=== PATIENT | female | born 1950 | race Caucasian/White ===

== ENCOUNTER 2022-06-10 11:13 | Outpatient (CLI) | payer MEDICARE, OTHER, SELFPAY ==
--- NOTE | 2022-06-10 11:20 | MM_ITS ---
WS: [id number] VIEWS: MLO and CC views both breasts. 3D digital tomosynthesis is also included in this exam. Comparison made with prior exam of 06/13/2010, 06/20/2011, 02/04/2013, 06/09/2014, 06/21/2014, 018, Findings: There was no sign of mass, architectural distortion or suspicious calcification in either breast. Ex tremely dense breast parenchyma MM/[place] [id number] Impression: BI-RADS: 2-Benign FOLLOW-UP: 1 Year Follow-up This mammogram was also analyzed by the Computer Aided Detection System R2 Imag e Core Measures Abstractor.
== END 2022-06-10 11:14 | disposition home or self-care (01) ==
LOC: RAD 11:14
PROVIDERS: PCP Family Medicine; Visit Provider Family Medicine
DX: Z12.31 Encounter for screening mammogram for malignant neoplasm of breast (principal)
CPT/HCPCS: 77063; 77067

== ENCOUNTER 2022-09-16 13:10 | Outpatient (CLI) | payer MEDICARE, OTHER, SELFPAY ==
--- NOTE | 2022-09-16 13:22 | XR_ITS ---
WS: [id number] DEXA (DUAL ENERGY X-RAY ABSORPTIOMETRY) Bone mineral density was performed using a Munchkin machine. HISTORY: ASYMPTOMATIC MENOPAUSAL STATE COMPARISON: None available. Left forearm BMD: 0.702 g/cm2. T score: -2.0 Z score: 0.0 Total hip BMD: Left: 0.580 g/cm2. T score: -3.4 Z score: -1.2 Right: 0.584 g/cm2. T score: -3.4 Z score: -1.2 10 year probability of a major osteoporotic fracture is 22.2%. XR/XR DEXA axial skeleton* 51891 IMPRESSION: OSTEOPOROSIS based upon the WHO classification for females.
== END 2022-09-16 13:11 | disposition home or self-care (01) ==
PROVIDERS: PCP Family Medicine; Visit Provider Family Medicine
DX: Z78.0 Asymptomatic menopausal state (principal); M81.0 Age-related osteoporosis without current pathological fracture
CPT/HCPCS: 77080

== ENCOUNTER 2022-09-30 09:05 | Oncology outpatient (recurring) (ONCR) | payer MEDICARE, OTHER, SELFPAY ==
[2022-09-30 09:42] VITALS: BMI 14.2
[2022-09-30 09:47] VITALS: BP 110/52; PULSE 70; RESP 16; TEMP 37.1; O2SAT 99
[2022-09-30] MEDS: denosumab 60 mg SDV SUBCUT (09:59)
== END 2022-10-19 23:59 | disposition home or self-care (01) ==
PROVIDERS: PCP Family Medicine; Visit Provider Family Medicine
DX: M81.0 Age-related osteoporosis without current pathological fracture (principal)
CPT/HCPCS: 96372; J0897

== ENCOUNTER 2023-07-24 13:16 | Observation (INO) | payer MEDICARE, OTHER, SELFPAY ==
[2023-07-24] VITALS (9 sets, daily range): BP systolic 90–117; BP diastolic 38–57; PULSE 61–80; RESP 16–17; TEMP 36.4–36.5; O2SAT 95–98; BMI 13.1
--- NOTE | 2023-07-24 13:18 | XR_ITS ---
WS: [id number] Portable AP upright chest, 07/24/2023 Clinical Data: chest pain Comparison: Two-view chest, 02/14/2019 Findings: No nodules, masses or effusions are seen. The heart is normal. The pulmonary vascularity is not increased. No pneumonia or pneumothorax is seen. The diaphragms are flattened. Monitor leads are on the chest and abdominal wall. Impression: Hyperinflation.
--- NOTE | 2023-07-24 13:43 | PC.PHAR ---
Addendum entered by Marycarmen Castillo 07/24/23 13:48: pts famliy states pt not taking any otc medications Original Note: pts famly verified pts medications-states the pt is still taking lipitor 20mg daily samina at [facility] pharmacy states last filled 02/07/23 90d/s pts family states the pt is still taking lipitor 20mg daily-
--- NOTE | 2023-07-24 13:44 | ECG_ITS ---
[facility] Test Date: 2023-07-24 Pat Name: Kelley Rahman Department: Room: Gender: Female Tax Manager: : 1950 Requested By: Monse Duarte Order Number: [id number] Rivero MD: Henok Durant M.D. Measurements Intervals Sherrill Rate: 68 P: 79 KS: 129 QRS: 268 QRSD: 103 T: 13 QT: 372 QTc: 397 Interpretive Statements SINUS RHYTHM RIGHT AXIS DEVIATION [QRS AXIS > 100] INCOMPLETE RIGHT BUNDLE BRANCH BLOCK [90+ ms QRS DURATION, TERMINAL R IN V1/V2, 40+ ms S IN I/aVL/V4/V5/V6] NONSPECIFIC ST & T-WAVE ABNORMALITY Compared to ECG 03/06/2017 16:06:53 T-wave abnormality now present Myocardial infarct finding no longer present Electronically Signed On 07-25-2023 23:14:14 CAMP GUARD by Henok Durant M.D. [id number]
[2023-07-24 13:53] LABS: Basophils % 0.2 %; Eosinophils # 0.1 10^3/uL (0.0-0.8); Eosinophils % 0.9 %; Hematocrit 46.4 % (36-47); Lymphocytes # 0.4 10^3/uL (0.8-4.8); Mean Corpuscular HGB Conc 32.1 g/dL (30-55); Mean Corpuscular Hemoglobin 29.1 pg (27-33); Mean Corpuscular Volume 90.6 fl (85-98); Mean Platelet Volume 9.9 fL (7.4-10.4); Monocytes # 0.3 10^3/uL (0.2-0.9); Monocytes % 3.1 %; Neutrophils # 8.15 10^3/uL (1.8-7.7); Neutrophils % 91.7 %; Nucleated Red Blood Cells % 0 %; Platelet Count 236 10^3/cmm (157-399); Red Blood Count 5.12 10^6/uL (3.85-5.65); Red Cell Distribution Width 14.1 % (12.1-15.1)
[2023-07-24 14:19] LABS: Troponin(5th) Baseline 26 ng/L (0-10)
[2023-07-24 14:36] LABS: INR 1.05 (0.8-1.2); Partial Thromboplastin Time 27.1 SECONDS (23.9-36.7)
--- NOTE | 2023-07-24 14:39 | W.ED.WEAKNES ---
HPI - Weakness General: Chief complaint: Weakness Stated complaint: chest pains Time Seen by Provider: 07/24/23 13:33 Source: patient Mode of arrival: ambulatory History of Present Illness: 73-year-old female who presents to the emergency room with complaints of weakness and shortness of breath. She has been sick for the last several days she had a syncopal episode 2 days ago. Intermittently she will feel racing heart rate. She denies any fever sweats or chills no abdominal pain or chest pain no dysuria urgency or frequency. No vomiting no diarrhea MD Complaint: generalized weakness Onset (ago): day(s) Duration: intermittent Relieving factors: none Exacerbating factors: none Associated symptoms: Denies chest pain, chills, confusion, melena, decreased appetite, diaphoresis, dysuria, easy bruising, fever(s), headache(s), myalgias, nausea, rash, short of breath, syncope or vomiting Review of Systems Const: Denies: fever(s), chills or diaphoresis Card: Denies: chest pain or syncope Resp: Denies: dyspnea GI: Denies: nausea, vomiting or melena : Denies: dysuria Musc: Denies: neck pain or back pain Skin/Breast: Denies: rash Neuro: Denies: headache(s) or confusion Nsa/Lymph: Denies: easy bruising Physical Exam Const: COMMON NORMALS: no acute distress GENERAL APPEARANCE: cooperative and comfortable ORIENTATION/CONSCIOUSNESS: Yes awake, Yes oriented to person, Yes oriented to place and Yes oriented to time HENMT: COMMON NORMALS: normocephalic, atraumatic and hearing grossly normal bilaterally HEAD & SCALP: normocephalic and atraumatic Resp: COMMON NORMALS: normal respiratory effort, No retractions, No use of accessory muscles and clear to auscultation bilaterally AUSCULTATION: clear to auscultation bilaterally Cardio: COMMON NORMALS: regular rate, regular rhythm and No murmurs present (Cardio) RATE: regular rate RHYTHM: regular rhythm GI: COMMON NORMALS: Soft to palpation and No hepatosplenomegaly present AUSCULTATION: Yes normoactive bowel sounds PALPATION: Yes Soft to palpation, No Tenderness to palpation present (GI), No Guarding due to palpation present (GI) and Yes No hepatosplenomegaly present Extremity: COMMON NORMALS: normal to inspection, capillary refill normal, no clubbing, cyanosis or edema, no calf tenderness and no pedal edema Neuro: SENSORIUM/ORIENTATION: Yes oriented to person, Yes oriented to place and Yes oriented to time Skin: COMMON NORMALS: no rashes or lesions noted GENERAL SKIN EXAM: no rashes or lesions noted Course Vital Signs: Vital signs: Vital Signs Temperature 97.6 F 07/24/23 13:23 Pulse Rate 79 07/24/23 16:10 Respiratory Rate 16 07/24/23 13:23 Blood Pressure 104/47 07/24/23 16:10 Pulse Oximetry 98 07/24/23 16:10 Oxygen Delivery Me thod Room Air 07/24/23 16:10 MDM - Weakness Medical Decision Making Patient clinically is anorexic has fixations on food intake could have been exacerbated with her dementia per the family's report. She is reporting her heart racing at times and had a syncopal episode yesterday. She had some significant fluctuations in her blood pressure with notable hypotension at times. This did improve slightly with fluids. Given her BMI and the syncopal episode we recommended observation for further evaluation for syncopal episodes and heart rhythm patient refuses will discharge home encouraged her to follow-up with her primary care doctor to complete outpatient syncopal workup Medical Records I reviewed the patient's medical records. Lab Data I reviewed the patient's lab results. 07/24/23 13:48 07/24/23 13:48 Laboratory Results WBC 8.90 10^3/uL (3.29-11.43) 07/24/23 13:48 RBC 5.12 10^6/uL (3.85-5.65) 07/24/23 13:48 Hgb 14.90 g/dL (11.27-16.99) 07/24/23 13:48 Hct 46.4 % (36-47) 07/24/23 13:48 MCV 90.6 fl (85-98) 07/24/23 13:48 MCH 29.1 pg (27-33) 07/24/23 13:48 MCHC 32.1 g/dL (30-55) 07/24/23 13:48 RDW 14.1 % (12.1-15.1) 07/24/23 13:48 Plt Count 236 10^3/cmm (157-399) 07/24/23 13:48 MPV 9.9 fL (7.4-10.4) 07/24/23 13:48 Neut % (Auto) 91.7 % 07/24/23 13:48 Lymph % (Auto) 4.0 % 07/24/23 13:48 [place] % (Auto) 3.1 % 07/24/23 13:48 Eos % (Auto) 0.9 % 07/24/23 13:48 Baso % (Auto) 0.2 % 07/24/23 13:48 Neut # (Auto) 8.15 10^3/uL (1.8-7.7) H 07/24/23 13:48 Lymph # (Auto) 0.4 10^3/uL (0.8-4.8) L 07/24/23 13:48 [place] # (Auto) 0.3 10^3/uL (0.2-0.9) 07/24/23 13:48 Eos # (Auto) 0.1 10^3/uL (0.0-0.8) 07/24/23 13:48 Baso # (Auto) 0.0 10^3/uL (0.0-0.1) 07/24/23 13:48 Nucleated RBC % (auto) 0 % 07/24/23 13:48 Nucleated RBCs # 0.0 /100WBC 07/24/23 13:48 PT 14.10 SECONDS (12.1-14.9) 07/24/23 14:15 INR 1.05 (0.8-1.2) 07/24/23 14:15 APTT 27.1 SECONDS (23.9-36.7) 07/24/23 14:15 Sodium 143 mmol/L (136-145) 07/24/23 13:48 Potassium 3.4 mmol/L (3.5-5.1) L 07/24/23 13:48 Chloride 103 mmol/L (98-107) 07/24/23 13:48 Carbon Dioxide 28 mmol/L (22-29) 07/24/23 13:48 Anion Gap 15.4 (5-19) 07/24/23 13:48 BUN 12 mg/dL (8-23) 07/24/23 13:48 Creatinine 1.0 mg/dL (0.5-0.9) H 07/24/23 13:48 GFR Calculation Not Reportable 07/24/23 13:48 Glucose 89 mg/dL (65-115) 07/24/23 13:48 Calculated Osmolality 295 mOsm/kg (285-295) 07/24/23 13:48 Lactic Acid 1.2 mmol/L (0.5-2.2) 07/24/23 13:48 Calcium 9.8 mg/dL (8.5-10.5) 07/24/23 13:48 Total Bilirubin 0.8 mg/dL (0.15-1.2) 07/24/23 13:48 AST 26 U/L (0-32) 07/24/23 13:48 ALT 9 U/L (0-33) 07/24/23 13:48 Alkaline Phosphatase 89 U/L (35-105) 07/24/23 13:48 Creatine Kinase 176 U/L (26-192) 07/24/23 13:48 Troponin T Baseline 26 ng/L (0-10) H 07/24/23 13:48 Troponin T 120 Minute 24.44 ng/L (0-10) H 07/24/23 15:43 Delta Troponin T -1.56 ABS# (0-10) L 07/24/23 15:43 NT-Pro-B Natriuret Pep 951 pg/mL (0-125) H 07/24/23 13:48 Total Protein 6.8 g/dL (6.6-8.7) 07/24/23 13:48 Albumin 3.8 g/dL (3.5-5.2) 07/24/23 13:48 Globulin 3.0 g/dL (1.3-4.6) 07/24/23 13:48 Lipase 21 U/L (13-60) 07/24/23 13:48 All radiology interpretation(s) finalized by discharge Discharge Plan Discharge Patient Disposition: Home Clinical Impression: Syncope Condition: Stable Prescriptions: No Action donepezil 5 mg tablet 5 mg PO BEDTIME citalopram 10 mg tablet 10 mg PO QAM potassium chloride 10 mEq tablet extended release 10 meq PO BID atorvastatin 20 mg tablet 20 mg PO QAM Discharge Orders: Discharge ED (Routine); Ordered 07/24/23 Ordered By: Mikel Cooper Referrals: Kim Shell MD [Primary Care Provider] - Discharge Diet: Usual diet Discharge Activity: Increase activity as tolerated Patient Instructions: Opioid Safety, Pain Management Activity Restrictions/Additional Instructions: Thank you for choosing [facility] for your healthcare needs today. Please realize this is an emergency room and that we are providing you with a medical screening exam and this may not be complete and all inclusive of all the testing and or work up that you may need to determine your ailment or severity of your illness. It is very important that you follow up as instructed or that you return to the Emergency Department should you have concerns or if your condition changes or worsens in any way. You were seen today after a syncopal episode yesterday. Your blood pressure varied and at times was quite low it did improve a little with fluids. We recommended that you be admitted to further evaluate your syncope. Since you declined we recommend that you follow-up with your primary care doctor as soon as you are able to complete the syncopal workup as an outpatient. Coding Level of Care Code ED Rental Sales Associate for [employer]ik[employer] Harry
[2023-07-24 14:41] LABS: Alanine Aminotransferase 9 U/L (0-33); Albumin Level 3.8 g/dL (3.5-5.2); Alkaline Phosphatase 89 U/L (35-105); Anion Gap 15.4 (5-19); Aspartate Amino Transferase 26 U/L (0-32); Blood Urea Nitrogen 12 mg/dL (8-23); Calcium 9.8 mg/dL (8.5-10.5); Carbon Dioxide 28 mmol/L (22-29); Chloride 103 mmol/L (98-107); Creatine Phosphokinase 176 U/L (26-192); Glucose 89 mg/dL (65-115); Lipase 21 U/L (13-60); NT Pro B Type Natriuretic Pept 951 pg/mL (0-125); Osmolality Calculated 295 mOsm/kg (285-295); Potassium 3.4 mmol/L (3.5-5.1); Sodium 143 mmol/L (136-145); Total Bilirubin 0.8 mg/dL (0.15-1.2); Total Protein 6.8 g/dL (6.6-8.7)
[2023-07-24] MEDS: sodium chloride 0.9% 1,000 ML 999 ML IV (16:02)
[2023-07-24 16:13] LABS: Troponin 5 2HR 24.44 ng/L (0-10)
[2023-07-24 16:17] LABS: Troponin 5 2HR Delta -1.56 ABS# (0-10)
[2023-07-24 17:13] LABS: Lactic Sepsis W/Reflex 1.2 mmol/L (0.5-2.2)
[2023-07-24 17:22] LABS: Influenza A by IFA negative (Negative); Influenza B by IFA negative (Negative)
[2023-07-24 18:47] LABS: Adenovirus Not Detected (NOT DETECT); Chlamydia Pneumoniae Not Detected (NOT DETECT); Coronavirus 229E,HKU1,NL63,OC4 Not Detected (NOT DETECT); Human Metapneumovirus Not Detected (NOT DETECT); Human Rhinovirus/Enterovirus Not Detected (NOT DETECT); Influenza A Not Detected (NOT DETECT); Influenza A H1 Not Detected (NOT DETECT); Influenza A H1-2009 Not Detected (NOT DETECT); Influenza A H3 Not Detected (NOT DETECT); Influenza B Not Detected (NOT DETECT); Mycoplasma Pneumoniae Not Detected (NOT DETECT); Parainfluenza Virus Type 1 Not Detected (NOT DETECT); Parainfluenza Virus Type 2 Not Detected (NOT DETECT); Parainfluenza Virus Type 3 Not Detected (NOT DETECT); Parainfluenza Virus Type 4 Not Detected (NOT DETECT); Respiratory Syncytial Virus A Not Detected (NOT DETECT); Respiratory Syncytial Virus B Not Detected (NOT DETECT); SARS-COV-2 Not Detected (NOT DETECT)
--- NOTE | 2023-07-24 20:20 | P.HP_ITS ---
Providers/Chief Complaint 2 Admitting Physician: Nils Guaman Primary Care Provider: Kim Shell MD Chief Complaint: chest pains History of Present Illness 73-year-old lady with history of dementia, long history of poor appetite, possible eating disorder, low oral intake, vomiting intermittently, low weight, has been following up with primary provider with regards to this, refusing to eat well, eating mostly junk food, has been tried also different protein shakes, but still without success. Other medical problems. On Thursday she had a syncopal episode while walking at home. She does not seem to remember this, and only states I am doing well, not sure why I am here. I would like you to let me go home tomorrow. From history obtained from family it seems that she was having her heart racing. She does tell me that she was having cold-like symptoms with stuffy nose, possibly some cough about a week ago. This seems to have resolved. Then today her has noticed that she again appeared like she was not feeling well, appearing weaker with some more trouble walking, also reported some heart racing today. He does not remember this. She states currently while at rest in bed she is doing very well denies any symptoms, pain, discomfort or problems. Review of Systems 2 Const: Reports: fatigue; Denies: fever(s), chills, body aches or malaise ENMT: Denies: throat pain Card: Reports: palpitations and syncope; Denies: chest pain, edema or dyspnea on exertion Resp: Denies: dyspnea, productive cough, change in phlegm color or hemoptysis GI: Denies: abdominal pain, nausea, vomiting, diarrhea, constipation, hematochezia or melena : Denies: flank pain, urinary frequency or hematuria Musc: Denies: back pain, joint swelling or joint redness Skin/Breast: Denies: rash or new lesions Neuro: Denies: headache(s), numbness in extremities, weakness in extremities, dizziness, confusion or seizure-like activity Medications/Allergies Home Medications Medication Instructions Recorded Confirmed Last Taken Type atorvastatin 20 mg tablet 20 mg PO QAM 07/24/23 07/24/23 Unknown History citalopram 10 mg tablet 10 mg PO QAM 07/24/23 07/24/23 Unknown History donepezil 5 mg tablet 5 mg PO BEDTIME 07/24/23 07/24/23 07/23/23 History potassium chloride 10 mEq 10 meq PO BID 07/24/23 07/24/23 Unknown History tablet,extended release Allergies Allergy/AdvReac Type Severity Reaction Status Date / Time iodine Allergy Unknown Unknown Verified 07/24/23 13:42 PFSH Acute 2 PFSH: Medical History Inadequate oral intake Dementia Vitals/I&O/Wt Last Vital Signs Temp 97.6 F 07/24/23 13:23 Pulse 73 07/24/23 18:00 Resp 16 07/24/23 13:23 BP 94/38 07/24/23 18:00 Pulse Ox 95 07/24/23 18:00 O2 Del Method Room Air 07/24/23 18:18 07/24/23 07/24/23 07/24/23 06:59 14:59 22:59 Intake Total 1000 / 1000 Balance 1000 / 1000 Weight last 48 hrs Weight 34.927 kg Weight 34.927 kg Physical Exam 2 Const: COMMON NORMALS: alert GENERAL APPEARANCE: cooperative NUTRITIONAL APPEARANCE: cachectic ORIENTATION/CONSCIOUSNESS: Yes awake and Yes Other orientation findings (Not a good historian.) HENMT: COMMON NORMALS: oropharynx normal Neck/C-Spine: COMMON NORMALS: no JVD Resp: COMMON NORMALS: normal respiratory effort and clear to auscultation bilaterally AUSCULTATION: clear to auscultation bilaterally OTHER: Minimal wheeze Cardio: COMMON NORMALS: no JVD, regular rhythm, S1 normal heart sound present, S2 normal heart sound present and No murmurs present (Cardio) RHYTHM: regular rhythm HEART SOUNDS: S1 normal heart sound present and S2 normal heart sound present GI: COMMON NORMALS: Normal to inspection, nondistended, normoactive bowel sounds present, Soft to palpation and non-tender PALPATION: Yes Soft to palpation Extremity: COMMON NORMALS: no joint enlargement and no pedal edema OTHER: Sarcopenia Neuro: COMMON NORMALS: patient oriented x3 and moves all extremities S ENSORIUM/ORIENTATION: Yes alert Skin: COMMON NORMALS: no rashes or lesions noted GENERAL SKIN EXAM: no rashes or lesions noted Data 07/24/23 13:48 07/24/23 13:48 A&P Assessment and plan (1) Syncope: Syncope on Thursday while standing/walking. Appears possibly orthostatic. Blood pressure soft 90/38. Received a bolus in ER. Will give LR infusion. Does have poor oral intake. Denies any diarrhea. Denies chest pain pressure shortness of breath. Did have a cold-like illness with some nasal congestion perhaps mild cough about a week ago. Reviewed vitals, CBC, INR, CMP, CK, lipase, NT proBNP, troponin, COVID PCR panel, influenza antigen, chest x-ray, EKG. Reviewed ER note, discussed with ER physician. Possible severe/life-threatening arrhythmia with palpitations and syncope. Complete troponin EKG series, assess for cardiac ischemia. Incomplete RBBB on my EKG interpretation. Monitor on telemetry for possible arrhythmia. Discussed with her family possible environmental monitoring specialist at discharge. Obtain echocardiogram. Assess for possible severe valvular heart disease. Additionally obtain UA. TSH. Obtain orthostatics. Dietitian consultation if available. Add protein shakes to meals. IV hydration overnight. She is very small. At risk of fluid overload. Monitor. Encourage oral intake. Follow-up with primary provider regarding possible eating disorder, assessment for other possible causes of longstanding poor appetite, chronic weight loss. Consider assessment with gastric emptying study. Consider CT angiogram abdomen pelvis for assessment for chronic mesenteric ischemia. Consider psychiatric assessment for possible eating disorder. Discussed with patient and family also donepezil can cause syncope. Hold/stop medicine at this time. (2) Palpitations: Telemetry monitoring. Consider environmental monitoring specialist at discharge. (3) Inadequate oral intake: Severe malnutrition, BMI 13.2. Sarcopenia. Poor oral intake. Intermittent vomiting. Dietitian consultation if available. Add protein shakes to meals. IV hydration overnight. Encourage oral intake. Follow-up with primary provider regarding possible eating disorder, assessment for other possible causes of longstanding poor appetite, chronic weight loss. Consider assessment with gastric emptying study. Consider CT angiogram abdomen pelvis for assessment for chronic mesenteric ischemia. Consider psychiatric assessment for possible eating disorder. is not sure if she may be inducing vomiting sometimes. (4) Dementia: Stop donepezil for now given syncopal episode. Plan With care discussion: Wants attempted cardiopulmonary resuscitation in case of cardiac arrest. Attestations 2 Medical Necessity Statement*: Place in observation for additional assessment management of syncopal episode, palpitations and lady with history of dementia, malnutrition. Diagnoses Syncope R55 Palpitations R00.2 Inadequate oral intake R63.8 Dementia F03.90
[2023-07-24] MEDS: potassium chloride ER 10 mEq Tablet PO (21:04)
[2023-07-24] MEDS: lactated ringers 1,000 ML 75 ML IV (21:04)
--- NOTE | 2023-07-24 21:33 | PC.NURSE ---
patient is alert and oriented x4, but needs constant redirection as she in forgetful.
[2023-07-24 21:44] LABS: Add Urine Microscopic? YES; Bilirubin Urine 1+ (Negative); Blood Urine Neg (Negative); Glucose Urine UA Norm (Normal); Ketones Urine 2+ (Negative); Leukocyte Esterase Urine Negative (Negative); Nitrate Urine Negative (Negative); Protein Urine Trace (Negative); Urine Appearance Hazy (CLEAR); Urine Color Amber (Yellow); Urobilinogen Urine Norm (Negative); pH Urine 6 (5-7)
[2023-07-24 21:45] LABS: Bacteria Urine TRACE /hpf; Coarse Granular Casts Urine 0-4 /lpf; Hyaline Casts Urine 0-4 /lpf; Mucus Urine 3+ /hpf; RBC Urine 0-4 /hpf (0-2); Squamous Epithelial Cell Urine 0-4 /hpf (0-5); WBC Urine 0-4 /hpf (0-5)
[2023-07-24 22:50] LABS: Magnesium 1.9 mg/dL (1.7-2.3); Thyroid Stimulating Hormone 1.74 uIU/mL (0.27-4.20)
[2023-07-25] VITALS: BP 107/51; PULSE 61; RESP 17; TEMP 36.7; O2SAT 98
[2023-07-25 00:08] VITALS: BP 107/51; BP 118/67; PULSE 61; PULSE 62
[2023-07-25 04:00] VITALS: BP 114/52; PULSE 58; RESP 18; TEMP 36.4; O2SAT 97
[2023-07-25 06:00] VITALS: PULSE 56
[2023-07-25] MEDS: atorvastatin 40 mg Tablet PO (06:16)
[2023-07-25] MEDS: citalopram 20 mg Tablet 10 MG PO (06:16)
[2023-07-25 07:54] VITALS: BP 111/47; PULSE 56; RESP 20; TEMP 36.6; O2SAT 98
[2023-07-25] MEDS: potassium chloride ER 10 mEq Tablet PO (08:52)
--- NOTE | 2023-07-25 09:26 | USCV_ITS ---
Kelley Rahman Age: 73 Gender: F : 1950 Exam Date: 07/25/2023 11:32 Ordering Phys: Nils Guaman MD Technologist: Gus Hensley [place] [facility] [place]: [place] pain BP: 111 / 47 HR: 65 Rhythm: Sinus Technical Quality: Adequate MEASUREMENTS (Male / Female) Normal Values 2D ECHO LVOT Diameter 2.0 cm LV Ejection Fraction MOD 2C 68.2 % LV Ejection Fraction 2C AL 68.2 % LA Diameter 3.0 cm LA Width 3.2 cm LA Height 1.7 cm RA Width 3.1 cm RA Height 3.5 cm Aorta at Sinotubular Diameter 2.1 cm IVC Diameter 1.6 cm M-MODE Aortic Annulus Diameter 3.0 cm LA Ao Ratio MM 1.0 MV E Point Septal Separation 0.6 cm DOPPLER AV Peak Velocity 135.0 cm/s LVOT Peak Velocity 76.0 cm/s AV Area Cont Eq vti 1.2 cm squared AV Area Cont Eq pk 1.8 cm squared MV Peak Velocity 111.0 cm/s MV Area PHT 3.3 cm squared Mitral E to A Ratio 0.8 MV E' Velocity 31.5 cm/s Mitral E to MV E' Ratio 6.5 Mitral E to LV E' Lateral Ratio 8.1 Mitral E to LV E' Septal Ratio 5.5 TR Peak Velocity 254.5 cm/s TR Peak Gradient 25.9 mmHg TR Mean Velocity 189.1 cm/s TR Mean Gradient 15.6 mmHg TR Velocity Time Integral 63.6 cm Right Atrial Pressure 8.0 mmHg Pulmonary Artery Systolic Pressu 33.9 mmHg PV Peak Velocity 70.0 cm/s RV Acceleration Time 0.1 s RV Ejection Time 0.3 s RV AcT/ET 0.5 FINDINGS Left Ventricle Left ventricle is normal size. LV systolic function is normal with EF of 60 to 65%. No regional wall motion abnormalities are seen. Grade 1 diastolic dysfunction. Right Ventricle Normal in size and function Right Atrium Normal in size Left Atrium Normal in size Mitral Valve Structurally normal mitral valve. Trace mitral regurgitation. Aortic Valve Structurally normal aortic valve. No significant stenosis. Moderate aortic regurgitation. Tricuspid Valve Mild tricuspid regurgitation. Pulmonary artery systolic pressure is normal. Pulmonic Valve Not well visualized. Mild pulmonic regurgitation. Pericardium Normal Aorta Normal IVC Apperas to be normal CONCLUSIONS LV systolic function is normal with EF of 60 to 65% Grade 1 diastolic dysfunction. Trace mitral regurgitation Moderate aortic regurgitation Mild tricuspid regurgitation Mild pulmonic regurgitation No comparison studies are available Henok Durant MD (Electronically Signed) Final Date: 26 July 2023 10:56 S
[2023-07-25] MEDS: haloperidol inj 5 mg/mL INJ 1 mL 1 MG IM (10:41)
[2023-07-25] MEDS: lactated ringers 1,000 ML 75 ML IV (10:47)
[2023-07-25 11:58] VITALS: BP 100/48; BP 103/50; BP 92/41; PULSE 60; PULSE 70; PULSE 96; RESP 19; TEMP 36.6; O2SAT 92
--- NOTE | 2023-07-25 15:15 | PM.DCS ---
Discharge Providers Date of Admission: 07/24/23 17:51 Date of Discharge: July 25, 2023 Attending Provider at Admission: Nils Guaman Attending Provider at Discharge: Nils Guaman Primary Care Provider: Kim Shell MD Diagnoses at Discharge Discharge Diagnosis (1) Syncope: Status: Acute (2) Palpitations: Status: Acute (3) Inadequate oral intake: Status: Acute (4) Dementia: Status: Acute Reason for Visit Reason for Visit: chest pains Brief History: 73-year-old lady with history of dementia, long history of poor appetite, possible eating disorder, low oral intake, vomiting intermittently, low weight, has been following up with primary provider with regards to this, refusing to eat well, eating mostly junk food, has been tried also different protein shakes, but still without success. Other medical problems. On Thursday she had a syncopal episode while walking at home. She does not seem to remember this, and only states I am doing well, not sure why I am here. I would like you to let me go home tomorrow. From history obtained from family it seems that she was having her heart racing. She does tell me that she was having cold-like symptoms with stuffy nose, possibly some cough about a week ago. This seems to have resolved. Then today her has noticed that she again appeared like she was not feeling well, appearing weaker with some more trouble walking, also reported some heart racing today. He does not remember this. She states currently while at rest in bed she is doing very well denies any symptoms, pain, discomfort or problems. Hospital Course Hospital Course She received IV fluid hydration. Donepezil was held. Additionally assessed by UA, TSH which were unremarkable. Blood pressures with improvement. Orthostatics obtained this morning, lying 100/48, standing 92/41. Monitor neurotelemetry, noted some sinus bradycardia. Recommended discontinuation of donepezil given reported risks of increased vagal tone, bradycardia, as well as syncope with donepezil. Encouraged oral intake, she has not been having good oral intake, appetite is is is not good, per mostly eats some junk food in small amounts. Intermittent vomiting. Severe malnutrition, sarcopenia, emaciated, BMI 13.3. These are chronic issues which have been going on for very long time. Please assess further reasons for poor oral intake and malnutrition. She was seen by dietitian with given recommendations. We discussed also with them as she is on citalopram, stopping citalopram and switching to mirtazapine which is done. Please consider additional assessment for possible mesenteric stenosis/chronic bowel ischemia with CT angiogram abdomen pelvis, consider assessment with gastric emptying study for any possible gastroparesis. Consider further assessment for eating disorder. She is given referral to [facility]. During hospitalization did become inconsolable and agitated, required a dose of Haldol 1 mg IM with a very good response. Behavioral health care may help reassess with history of dementia with behavioral disturbance as well as possible eating disorder. Echocardiogram was obtained as well, final result not yet available but preliminarily does appear to have moderate aortic regurgitation. Discussed with her and family, please follow-up. At discharge per discussion with cardiology set up with cardiac event monitor. Physical Exam Const: COMMON NORMALS: patient oriented x3 and alert GENERAL APPEARANCE: cooperative NUTRITIONAL APPEARANCE: cachectic ORIENTATION/CONSCIOUSNESS: Yes awake and Yes Other orientation findings (Not a good historian.) HENMT: COMMON NORMALS: oropharynx normal Neck/C-Spine: COMMON NORMALS: no JVD Resp: COMMON NORMALS: normal respiratory effort and clear to auscultation bilaterally AUSCULTATION: clear to auscultation bilaterally OTHER: Minimal wheeze Cardio: COMMON NORMALS: no JVD, regular rhythm, S1 normal heart sound present, S2 normal heart sound present and No murmurs present (Cardio) RHYTHM: regular rhythm HEART SOUNDS: S1 normal heart sound present and S2 normal heart sound present GI: COMMON NORMALS: Normal to inspection, nondistended, normoactive bowel sounds present, Soft to palpation and non-tender PALPATION: Yes Soft to palpation Extremity: COMMON NORMALS: no joint enlargement and no pedal edema OTHER: Sarcopenia Neuro: COMMON NORMALS: patient oriented x3 and moves all extremities SENSORIUM/ORIENTATION: Yes alert Skin: COMMON NORMALS: no rashes or lesions noted GENERAL SKIN EXAM: no rashes or lesions noted Discharge Data Studies Completed and Pending Completed Studies During Hospitalization Category Date Time Status XR chest 1V portable [id number] Stat Exams 07/24/23 13:18 Completed Pending at discharge Category Date Time Status CV. echo complete* [id number] Routine Ultrasound 07/25/23 09:26 Taken Laboratory Results WBC 8.90 10^3/uL (3.29-11.43) 07/24/23 13:48 RBC 5.12 10^6/uL (3.85-5.65) 07/24/23 13:48 Hgb 14.90 g/dL (11.27-16.99) 07/24/23 13:48 Hct 46.4 % (36-47) 07/24/23 13:48 MCV 90.6 fl (85-98) 07/24/23 13:48 MCH 29.1 pg (27-33) 07/24/23 13:48 MCHC 32.1 g/dL (30-55) 07/24/23 13:48 RDW 14.1 % (12.1-15.1) 07/24/23 13:48 Plt Count 236 10^3/cmm (157-399) 07/24/23 13:48 MPV 9.9 fL (7.4-10.4) 07/24/23 13:48 Neut % (Auto) 91.7 % 07/24/23 13:48 Lymph % (Auto) 4.0 % 07/24/23 13:48 [place] % (Auto) 3.1 % 07/24/23 13:48 Eos % (Auto) 0.9 % 07/24/23 13:48 Baso % (Auto) 0.2 % 07/24/23 13:48 Neut # (Auto) 8.15 10^3/uL (1.8-7.7) H 07/24/23 13:48 Lymph # (Auto) 0.4 10^3/uL (0.8-4.8) L 07/24/23 13:48 [place] # (Auto) 0.3 10^3/uL (0.2-0.9) 07/24/23 13:48 Eos # (Auto) 0.1 10^3/uL (0.0-0.8) 07/24/23 13:48 Baso # (Auto) 0.0 10^3/uL (0.0-0.1) 07/24/23 13:48 Nucleated RBC % (auto) 0 % 07/24/23 13:48 Nucleated RBCs # 0.0 /100WBC 07/24/23 13:48 PT 14.10 SECONDS (12.1-14.9) 07/24/23 14:15 INR 1.05 (0.8-1.2) 07/24/23 14:15 APTT 27.1 SECONDS (23.9-36.7) 07/24/23 14:15 Sodium 143 mmol/L (136-145) 07/24/23 13:48 Potassium 3.4 mmol/L (3.5-5.1) L 07/24/23 13:48 Chloride 103 mmol/L (98-107) 07/24/23 13:48 Carbon Dioxide 28 mmol/L (22-29) 07/24/23 13:48 Anion Gap 15.4 (5-19) 07/24/23 13:48 BUN 12 mg/dL (8-23) 07/24/23 13:48 Creatinine 1.0 mg/dL (0.5-0.9) H 07/24/23 13:48 GFR Calculation Not Reportable 07/24/23 13:48 Glucose 89 mg/dL (65-115) 07/24/23 13:48 Calculated Osmolality 295 mOsm/kg (285-295) 07/24/23 13:48 Lactic Acid 1.2 mmol/L (0.5-2.2) 07/24/23 13:48 Calcium 9.8 mg/dL (8.5-10.5) 07/24/23 13:48 Magnesium 1.9 mg/dL (1.7-2.3) 07/24/23 22:00 Total Bilirubin 0.8 mg/dL (0.15-1.2) 07/24/23 13:48 AST 26 U/L (0-32) 07/24/23 13:48 ALT 9 U/L (0-33) 07/24/23 13:48 Alkaline Phosphatase 89 U/L (35-105) 07/24/23 13:48 Creatine Kinase 176 U/L (26-192) 07/24/23 13:48 Troponin T Baseline 26 ng/L (0-10) H 07/24/23 13:48 Troponin T 120 Minute 24.44 ng/L (0-10) H 07/24/23 15:43 Delta Troponin T -1.56 ABS# (0-10) L 07/24/23 15:43 NT-Pro-B Natriuret Pep 951 pg/mL (0-125) H 07/24/23 13:48 Total Protein 6.8 g/dL (6.6-8.7) 07/24/23 13:48 Albumin 3.8 g/dL (3.5-5.2) 07/24/23 13:48 Globulin 3.0 g/dL (1.3-4.6) 07/24/23 13:48 Lipase 21 U/L (13-60) 07/24/23 13:48 TSH 1.74 uIU/mL (0.27-4.20) 07/24/23 22:00 Urine Color [place]te (Yellow) 07/24/23 21:10 Urine Appearance Hazy (CLEAR) A 07/24/23 21:10 Urine pH 6 (5-7) 07/24/23 21:10 Ur Specific [place] 1.020 (1.005-1.030) 07/24/23 21:10 Urine Protein Trace (Negative) 07/24/23 21:10 Urine Glucose (UA) Norm (Normal) 07/24/23 21:10 Urine Ketones 2+ (Negative) H 07/24/23 21:10 Urine Blood Neg (Negative) 07/24/23 21:10 Urine Nitrate Negative (Negative) 07/24/23 21:10 Urine Bilirubin 1+ (Negative) H 07/24/23 21:10 Urine Urobilinogen Norm mg/dL (Negative) 07/24/23 21:10 Ur Leukocyte Esterase Negative (Negative) 07/24/23 21:10 Urine RBC 0-4 /hpf (0-2) H 07/24/23 21:10 Urine WBC 0-4 /hpf (0-5) H 07/24/23 21:10 Ur Squamous Epith Cells 0-4 /hpf (0-5) H 07/24/23 21:10 Amorphous Sediment Not Reportable 07/24/23 21:10 Urine Bacteria Trace /hpf (NONE) 07/24/23 21:10 Hyaline Casts 0-4 /lpf H 07/24/23 21:10 Coarse Granular Casts 0-4 /lpf H 07/24/23 21:10 Urine Mucus 3+ /hpf 07/24/23 21:10 Coronavirus 229E (PCR) Not detected (NOT DETECT) 07/24/23 16:08 Influenza Type A Ag negative (Negative) 07/24/23 16:08 Influenza Type B Ag negative (Negative) 07/24/23 16:08 SARS-CoV-2 (PCR) Not detected (NOT DETECT) 07/24/23 16:08 Vitals Last Vital Signs Temp 97.8 F 07/25/23 11:58 Pulse 60 07/25/23 11:58 Resp 19 H 07/25/23 11:58 BP 100/48 07/25/23 11:58 Pulse Ox 92 07/25/23 11:58 O2 Del Method Room Air 07/25/23 11:58 Discharge Plan Discharge Patient Disposition: Home Condition: Fair Prescriptions: New mirtazapine 15 mg tablet 15 mg PO DAILY Qty: 90 0RF Continued potassium chloride 10 mEq tablet extended release 10 meq PO BID atorvastatin 20 mg tablet 20 mg PO QAM Discontinued donepezil 5 mg tablet 5 mg PO BEDTIME citalopram 10 mg tablet 10 mg PO QAM Discharge Orders: Discharge Order (Routine); Ordered 07/25/23 Ordered By: Nils Guaman Other Ambulatory Orders: MCT/Event Monitor 15 Days (Routine) Timeframe: 2 Days Facility: [facility] - Location: Radiology Ordered By: Nils Guaman Referrals: [facility] [Provider Group] - 1 week (Malnutrition, possible eating disorder) Kim Shell MD [Primary Care Provider] - 4-7 days (Syncope, palpitations) Discharge Diet: As Directed Discharge Activity: Increase activity as tolerated and Limit activity as instructed Patient Instructions: Mirtazapine (By mouth), Heart Palpitations (GEN), Potassium Content of Foods List (GEN), Malnutrition (GEN), Syncope (GEN), Dementia (GEN), Hypotension (GEN), Bradycardia (GEN), Anorexia in Older Adults (GEN) Activity Restrictions/Additional Instructions: Please follow-up with your primary doctor for reassessment after episode of fainting and palpitations/feeling of fast heart rate. You were seen today after a syncopal episode yesterday. Your blood pressure varied and at times was quite low it did improve a little with fluids. Please avoid dehydration and attempt to increase oral intake. Add Prosource Jell-O or other nutritional supplements of preference to meals. It seems dehydration is playing a role in your episodes of fast heart rate and low blood pressure. Your potassium is mildly low, please make sure to take your potassium supplement. Include foods rich in potassium. Please have your primary doctor follow-up your electrolytes again. Additionally your heart rate is noted on the slower side. Please stop donepezil as it can cause slow heart rate and can cause fainting in some patients. Please follow-up with your primary doctor for severe malnutrition and continued investigation for reasons for this, consideration of CT scan with contrast to exclude stenosis of mesenteric arteries/chronic bowel ischemia, gastric emptying study to exclude gastroparesis due to intermittent vomiting, consideration of follow-up with psychiatry for consideration of eating disorder. In case of any lightheadedness or feeling faint while standing or walking, sit down or lie down immediately. Do not try to fight symptoms to avoid fainting, fall and injury. In case of symptoms, check pulse rate per minute and blood pressure. In case of any worsening/recurrent syncope or new concerning symptoms, come back to emergency department. Discharge Attestations Time Spent in Discharge Care*: greater than 30 min Quality Metrics Clinical Quality Measures [ No reported AMI, CVA or VTE this stay] Coding Level of Care Code 99178 Total time (in minutes) for Discharge: 65 Diagnoses Syncope R55 Palpitations R00.2 Inadequate oral intake R63.8 Dementia F03.90
== END 2023-07-25 15:58 | disposition home or self-care (01) ==
LOC: ER 17:13 → MEDSURG 18:07
PROVIDERS: Physician Assistant; Admitting Provider Internal Medicine; Emergency Provider Family Medicine; PCP Family Medicine; Visit Provider Internal Medicine
DX: R55 Syncope and collapse (principal); R00.2 Palpitations; R63.8 Other symptoms and signs concerning food and fluid intake; F03.90 Unspecified dementia, unspecified severity, without behavioral disturbance, psychotic disturbance, mood disturbance, and anxiety; E46 Unspecified protein-calorie malnutrition; Z68.1 Body mass index [BMI] 19.9 or less, adult
CPT/HCPCS: 36415; 71045; 80053; 81001; 82550; 83605; 83690; 83735; 83880; 84443; 84484; 85025; 85610; 85730; 87635; 87804; 93005; 93306; 96360; 96361; 96372; 99285; G0378; J1630; J7030; J7120

== ENCOUNTER 2023-09-14 14:20 | Oncology outpatient (recurring) (ONCR) | payer MEDICARE, OTHER, SELFPAY ==
[2023-09-14] MEDS: denosumab 60 mg SDV SUBCUT (14:52)
[2023-09-14 15:09] LABS: Calcium 10.5 mg/dL (8.5-10.5)
== END 2023-09-20 23:59 | disposition home or self-care (01) ==
LOC: ONCMED 14:21
PROVIDERS: PCP Family Medicine; Visit Provider Family Medicine
DX: M81.0 Age-related osteoporosis without current pathological fracture (principal)
CPT/HCPCS: 36415; 82310; 96372; J0897

== ENCOUNTER 2024-01-02 09:08 | Emergency (ER) | payer MEDICARE, OTHER, SELFPAY ==
[2024-01-02 09:19] VITALS: BP 116/49; PULSE 72; RESP 18; TEMP 36.4; O2SAT 92; BMI 11.7
[2024-01-02 09:37] VITALS: BP 116/49; PULSE 70; O2SAT 98
[2024-01-02 09:53] LABS: Basophils % 0.7 %; Eosinophils % 0.7 %; Hematocrit 36.9 % (36-47); Lymphocytes # 0.6 10^3/uL (0.8-4.8); Lymphocytes % 14.6 %; Mean Corpuscular HGB Conc 31.7 g/dL (30-55); Mean Corpuscular Hemoglobin 30.4 pg (27-33); Mean Corpuscular Volume 95.8 fl (85-98); Mean Platelet Volume 9.7 fL (7.4-10.4); Monocytes # 0.2 10^3/uL (0.2-0.9); Monocytes % 5.5 %; Neutrophils # 3.15 10^3/uL (1.8-7.7); Neutrophils % 78.3 %; Nucleated Red Blood Cells % 0 %; Platelet Count 283 10^3/cmm (157-399); Red Blood Count 3.85 10^6/uL (3.85-5.65); Red Cell Distribution Width 16.9 % (12.1-15.1); White Blood Count 4.03 10^3/uL (3.29-11.43)
--- NOTE | 2024-01-02 09:55 | ED_ITS ---
HPI - Altered Mental Status 2 General: Chief Complaint: Altered Mental Status Stated Complaint: blood in urine/ Confusion Time Seen by Provider: 01/02/24 09:20 Source: patient Mode of arrival: ambulatory History of Present Illness: 73-year-old female presents emergency ro om with several family members patient has worsening dementia has been progressively more difficult for family to manage at home. At times she does not recognize her . She had 1 bloody bowel movement yesterday family reports it was a fair amount. No black stools no hematemesis or coffee-ground emesis she denies chest pain or abdominal pain no dysuria urgency or frequency. Patient is cachectic her oral intake per the family has been very poor in the past. No fever sweats or chills. MD complaint: altered mental status Severity: moderate Review of Systems 2 Const: Reports: fatigue; Denies: fever(s) or chills Card: Denies: chest pain Resp: Denies: dyspnea GI: Reports: hematochezia; Denies: abdominal pain, nausea or vomiting : Denies: dysuria, urinary frequency or urinary urgency Musc: Denies: neck pain or back pain Skin/Breast: Denies: rash PFSH ED 2 PFSH: Medical History Inadequate oral intake Dementia Physical Exam 2 Const: GENERAL APPEARANCE: comfortable NUTRITIONAL APPEARANCE: cachectic ORIENTATION/CONSCIOUSNESS: Yes awake HENMT: COMMON NORMALS: normocephalic, atraumatic and hearing grossly normal bilaterally HEAD & SCALP: normocephalic and atraumatic Resp: COMMON NORMALS: normal respiratory effort, No retractions, No use of accessory muscles and clear to auscultation bilaterally AUSCULTATION: clear to auscultation bilaterally Cardio: COMMON NORMALS: regular rate, regular rhythm and No murmurs present (Cardio) RATE: regular rate RHYTHM: regular rhythm GI: COMMON NORMALS: Soft to palpation and No hepatosplenomegaly present A USCULTATION: Yes normoactive bowel sounds PALPATION: Yes Soft to palpation, No Tenderness to palpation present (GI), No Guarding due to palpation present (GI) and Yes No hepatosplenomegaly present Extremity: COMMON NORMALS: normal to inspection, capillary refill normal, no clubbing, cyanosis or edema, no calf tenderness and no pedal edema Skin: COMMON NORMALS: no rashes or lesions noted GENERAL SKIN EXAM: no rashes or lesions noted Course 2 Vital Signs: Vital signs: Vital Signs Temperature 97.6 F 01/02/24 14:35 Pulse Rate 78 01/02/24 14:35 Respiratory Rate 18 01/02/24 14:35 Blood Pressure 118/40 01/02/24 14:35 Pulse Oximetry 100 01/02/24 14:35 Oxygen Delivery Me thod Room Air 01/02/24 14:34 MDM - Altered Mental Status Medical Decision Making Patient is confused and after talk to her family she does have quite a bit of underlying dementia. They are pursuing guardianship which I think is very appropriate and think she will benefit greatly from this at this point she is still objecting to higher levels of care which would be very beneficial for her. She did have a slight elevation in her sodium and her anion gap she is given IV fluid she says she feels much better. CT of her abdomen shows left base pneumonia but otherwise no acute pathology urine did not show any significant abnormality or sign of infection. This point do not have anything that she would require to be admitted for the pneumonia seen on the CT was not seen on the chest x-ray we will put her on Augmentin 875 twice daily. She had 1 episode of bright red blood per stool per report but she has normal white count and normal hemoglobin. If she has recurrent bleeding she should return the Augmentin would also cover if she has some diverticular irritation but none was noted on the CAT scan. She is feeling better after the fluids. Will discharge her home and have her follow-up with her primary care doctor. Should have repeat hemoglobin and BMP next week. Return if has further problems. Medical Records I reviewed the patient's medical records. Lab Data I reviewed the patient's lab results. 01/02/24 09:42 01/02/24 09:42 Radiology Impressions Abdomen/Pelvis CT 01/02/24 10:01 IMPRESSION: 1. No acute intra-abdominal process. 2. Tree-in-bud infiltrates in the left lower lobe, suggestive of pneumonia. COMMENTS: Consistent with the [place] [employer]'s Incidental Findings Committee white paper (J Am Argelia Radiol 2018): Any incidental renal lesion less than 1 cm or classified as too small to characterize, or any incidental cystic renal lesion characterized as simple-appearing, is likely benign. No follow-up imaging is recommended for these lesions per consensus recommendations based on imaging criteria. Laboratory Results WBC 4.03 10^3/uL (3.29-11.43) 01/02/24 09:42 RBC 3.85 10^6/uL (3.85-5.65) 01/02/24 09:42 Hgb 11.70 g/dL (11.27-16.99) 01/02/24 09:42 Hct 36.9 % (36-47) 01/02/24 09:42 MCV 95.8 fl (85-98) 01/02/24 09:42 MCH 30.4 pg (27-33) 01/02/24 09:42 MCHC 31.7 g/dL (30-55) 01/02/24 09:42 RDW 16.9 % (12.1-15.1) H 01/02/24 09:42 Plt Count 283 10^3/cmm (157-399) 01/02/24 09:42 MPV 9.7 fL (7.4-10.4) 01/02/24 09:42 Neut % (Auto) 78.3 % 01/02/24 09:42 Lymph % (Auto) 14.6 % 01/02/24 09:42 [place] % (Auto) 5.5 % 01/02/24 09:42 Eos % (Auto) 0.7 % 01/02/24 09:42 Baso % (Auto) 0.7 % 01/02/24 09:42 Neut # (Auto) 3.15 10^3/uL (1.8-7.7) 01/02/24 09:42 Lymph # (Auto) 0.6 10^3/uL (0.8-4.8) L 01/02/24 09:42 [place] # (Auto) 0.2 10^3/uL (0.2-0.9) 01/02/24 09:42 Eos # (Auto) 0.0 10^3/uL (0.0-0.8) 01/02/24 09:42 Baso # (Auto) 0.0 10^3/uL (0.0-0.1) 01/02/24 09:42 Nucleated RBC % (auto) 0 % 01/02/24 09:42 Nucleated RBCs # 0.0 /100WBC 07/13/24 09:42 Sodium 149 mmol/L (136-145) H 01/02/24 09:42 Potassium 4.3 mmol/L (3.5-5.1) 01/02/24 09:42 Chloride 106 mmol/L (98-107) 01/02/24 09:42 Carbon Dioxide 25 mmol/L (22-29) 01/02/24 09:42 Anion Gap 22.3 (5-19) H 01/02/24 09:42 BUN 38 mg/dL (8-23) H 01/02/24 09:42 Creatinine 1.0 mg/dL (0.5-0.9) H 01/02/24 09:42 GFR Calculation Not Reportable 01/02/24 09:42 Glucose 98 mg/dL (65-115) 01/02/24 09:42 Calculated Osmolality 317 mOsm/kg (285-295) H 01/02/24 09:42 Lactic Acid 1.7 mmol/L (0.5-2.2) 01/02/24 09:42 Calcium 9.1 mg/dL (8.5-10.5) 01/02/24 09:42 Total Bilirubin 0.4 mg/dL (0.15-1.2) 01/02/24 09:42 AST 40 U/L (0-32) H 01/02/24 09:42 ALT 27 U/L (0-33) 01/02/24 09:42 Alkaline Phosphatase 78 U/L (35-105) 01/02/24 09:42 Total Protein 6.1 g/dL (6.6-8.7) L 01/02/24 09:42 Albumin 3.3 g/dL (3.5-5.2) L 01/02/24 09:42 Globulin 2.8 g/dL (1.3-4.6) 01/02/24 09:42 Urine Color Yellow (Yellow) 01/02/24 12:10 Urine Appearance Clear (CLEAR) 01/02/24 12:10 Urine pH 8 (5-7) H 01/02/24 12:10 Ur Specific [place] 1.015 (1.005-1.030) 01/02/24 12:10 Urine Protein Neg (Negative) 01/02/24 12:10 Urine Glucose (UA) Norm (Normal) 01/02/24 12:10 Urine Ketones Negative (Negative) 01/02/24 12:10 Urine Blood Neg (Negative) 01/02/24 12:10 Urine Nitrate Negative (Negative) 01/02/24 12:10 Urine Bilirubin Neg (Negative) 01/02/24 12:10 Urine Urobilinogen Norm mg/dL (Negative) 01/02/24 12:10 Ur Leukocyte Esterase Negative (Negative) 01/02/24 12:10 All radiology interpretation(s) finalized by discharge Discharge Plan Discharge Patient Disposition: Home Clinical Impression: Pneumonia, Dementia Condition: Stable Prescriptions: New amoxicillin-pot clavulanate 875-125 mg tablet 1 tab PO BID Qty: 14 0RF No Action potassium chloride 10 mEq tablet extended release 10 meq PO BID atorvastatin 20 mg tablet 20 mg PO QAM mirtazapine 15 mg tablet 15 mg PO DAILY Qty: 90 0RF Discharge Orders: Discharge ED (Routine); Ordered 01/02/24 Ordered By: Mikel Cooper Referrals: Kim Shell MD [Primary Care Provider] - Discharge Diet: Usual diet Discharge Activity: Increase activity as tolerated Patient Instructions: Altered Mental Status (ED), Pneumonia (ED), Opioid Safety, Pain Management Activity Restrictions/Additional Instructions: Thank you for choosing [facility] for your healthcare needs today. It is very important that you follow up as instructed or that you return to the Emergency Department should you have concerns or if your condition changes or worsens in any way. You were seen today in the emergency room with increased confusion and complaints of blood in the stool. CT of your abdomen was negative your hemoglobin was stable. CT did show a left lower lobe pneumonia however your oxygen sats are normal and your white count is normal this can be treated as an outpatient. Coding Level of Care Code ED Service Liaison Representative for Chikis Harry
--- NOTE | 2024-01-02 10:01 | CTR_ITS ---
PROCEDURE INFORMATION: Exam: CT Abdomen And Pelvis With Contrast Exam date and time: 01/02/2024 11:17 AM Age: 73 years old Clinical indication: Abdominal pain; Generalized; Additional info: Abd pain TECHNIQUE: Imaging protocol: Computed tomography of the abdomen and pelvis with contrast. Radiation optimization: All CT scans at this facility use at least one of these dose optimization techniques: automated exposure control; mA and/or kV adjustment per patient size (includes targeted exams where dose is matched to clinical indication); or iterative reconstruction. Contrast material: OMNIPAQUE 350; Contrast volume: 75 ml; Contrast route: INTRAVENOUS (IV); COMPARISON: CR XR lumbar spine 2-3V* [id number] 06/01/2019 9:35 AM RADIATION DOSE METRICS: Total DLP (mGy-cm): 288.45 FINDINGS: Tubes, catheters and devices: Bilateral trans sacral stimulators. Lungs: Tree-in-bud infiltrates in the left lower lobe. Right lower lobe atelectasis. Liver: At least 4 hypodense hepatic lesion measuring up to 1 x 0.8 cm in segment 7 of the liver, stable. Gallbladder and biliary ducts: Normal. No calcified stones. No ductal dilation. Pancreas: Normal. No ductal dilation. Spleen: Calcified granulomas in the spleen. Adrenal glands: Normal. No mass. Kidneys and ureters: Multiple hypodense lesions in the bilateral kidneys measuring up to 1 cm in the lower pole of the left kidney and 1 cm in the upper pole of the right kidney, consistent with cysts. There is a 3 mm nonobstructing stone in the interpolar region of the left kidney. No hydronephrosis on either side. Stomach and bowel: Unremarkable. No obstruction. No mucosal thickening. Appendix: No evidence of appendicitis. Intraperitoneal space: Unremarkable. No free air. No significant fluid collection. Vasculature: Vascular calcifications. Pelvic phleboliths. Lymph nodes: Unremarkable. No enlarged lymph nodes. Urinary bladder: Unremarkable as visualized. Reproductive: Unremarkable as visualized. Bones/joints: Mild degenerative disease bilateral sacroiliac joints. Post posterior instrumentation at L4-L5. Mild curvature of the lumbar spine convex the right. Mild retrolisthesis of L2 over L3 with severe disc space narrowing, anterior and posterior osteophytes causing mild bony canal stenosis. Mild anterolisthesis of L4 over L5. Soft tissues: Unremarkable. CT/CT abdomen pelvis w con* [id number] IMPRESSION: 1. No acute intra-abdominal process. 2. Tree-in-bud infiltrates in the left lower lobe, suggestive of pneumonia. COMMENTS: Consistent with the [place] [employer]'s Incidental Findings Committee white paper (J Am Argelia Radiol 2018): Any incidental renal lesion less than 1 cm or classified as too small to characterize, or any incidental cystic renal lesion characterized as simple-appearing, is likely benign. No follow-up imaging is recommended for these lesions per consensus recommendations based on imaging criteria.
[2024-01-02 10:11] LABS: Alanine Aminotransferase 27 U/L (0-33); Albumin Level 3.3 g/dL (3.5-5.2); Alkaline Phosphatase 78 U/L (35-105); Anion Gap 22.3 (5-19); Aspartate Amino Transferase 40 U/L (0-32); Blood Urea Nitrogen 38 mg/dL (8-23); Calcium 9.1 mg/dL (8.5-10.5); Carbon Dioxide 25 mmol/L (22-29); Chloride 106 mmol/L (98-107); Creatinine Clr Calc Pharmacy 24.7609; Globulin 2.8 g/dL (1.3-4.6); Glucose 98 mg/dL (65-115); Osmolality Calculated 317 mOsm/kg (285-295); Potassium 4.3 mmol/L (3.5-5.1); Sodium 149 mmol/L (136-145); Total Bilirubin 0.4 mg/dL (0.15-1.2); Total Protein 6.1 g/dL (6.6-8.7)
[2024-01-02 10:12] LABS: Lactic Sepsis W/Reflex 1.7 mmol/L (0.5-2.2)
[2024-01-02] MEDS: methylPREDNISolone sod succ 40 mg/mL INJ IVP (10:41)
[2024-01-02] MEDS: diphenhydrAMINE 50 mg/mL SDV 1mL 25 MG IVP (10:41)
[2024-01-02] MEDS: ziprasidone 20 mg/mL SDV 5 MG IM (10:58)
[2024-01-02] MEDS: water for injection-sterile 10 ML (10:59)
[2024-01-02] MEDS: iohexol 350 mg/mL 500 mL Btl (per mL) IV (11:25)
[2024-01-02] MEDS: sodium chloride 0.9% 1,000 ML 999 ML IV (11:30)
[2024-01-02 12:12] VITALS: BP 116/49; PULSE 68; O2SAT 97
[2024-01-02 12:14] LABS: Add Urine Microscopic? NO; Charge for UA Resulting for Rev
[2024-01-02 12:18] LABS: Bilirubin Urine Neg (Negative); Blood Urine Neg (Negative); Glucose Urine UA Norm (Normal); Ketones Urine Negative (Negative); Leukocyte Esterase Urine Negative (Negative); Nitrate Urine Negative (Negative); Protein Urine Neg (Negative); Specific Gravity, Urine 1.015 (1.005-1.030); Urine Appearance Clear (CLEAR); Urine Color Yellow (Yellow); Urobilinogen Urine Norm (Negative); pH Urine 8 (5-7)
[2024-01-02 14:34] VITALS: BP 118/40; PULSE 78; O2SAT 100
[2024-01-02 14:35] VITALS: BP 118/40; PULSE 78; RESP 18; TEMP 36.4; O2SAT 100
== END 2024-01-02 14:36 | disposition home or self-care (01) ==
PROVIDERS: Emergency Provider Family Medicine; PCP Family Medicine
DX: J18.9 Pneumonia, unspecified organism (principal); F03.90 Unspecified dementia, unspecified severity, without behavioral disturbance, psychotic disturbance, mood disturbance, and anxiety
CPT/HCPCS: 36415; 74177; 80053; 81003; 83605; 85025; 96374; 96375; 99285; J1200; J2919; J3486; J7030; Q9967

== ENCOUNTER 2024-01-11 21:38 | Observation (INO) | payer MEDICARE, OTHER, SELFPAY ==
[2024-01-11] VITALS (9 sets, daily range): BP systolic 106–128; BP diastolic 48–69; PULSE 109–125; RESP 20–26; TEMP 36.6; O2SAT 51–95
--- NOTE | 2024-01-11 22:10 | XRR_ITS ---
PROCEDURE INFORMATION: Exam: XR Chest Exam date and time: 01/11/2024 10:13 PM Age: 74 years old Clinical indication: Dyspnea TECHNIQUE: Imaging protocol: Radiologic exam of the chest. Views: 1 view. COMPARISON: CR XR chest 1V portable [id number] 07/24/2023 1:51 PM FINDINGS: Lungs: The lungs are hyperexpanded. Patchy opacities at the lung bases, not seen on prior radiograph July 24, 2023, concerning for multifocal infectious/inflammatory etiology. Pleural spaces: Trace right pleural effusion. No pneumothorax. Heart/Mediastinum: Cardiomediastinal silhouette within normal limits. Bones/joints: No acute osseous findings. XR/XR chest 1V portable [id number] IMPRESSION: Patchy opacities at the lung bases, not seen on prior radiograph July 24, 2023, concerning for multifocal infectious/inflammatory etiology. Emphysema.
--- NOTE | 2024-01-11 22:10 | ED_ITS ---
HPI - SOB/Dyspnea 2 General: Chief Complaint: Shortness of Breath/Dyspnea Stated Complaint: SOB Time Seen by Provider: 01/11/24 21:56 History of Present Illness: HPI Narrative: Patient presents to the ER with a O2 saturation of 50% on 8 L per nasal cannula per family. Patient was diagnosed with pneumonia approximately week ago was sent home with Augmentin. Patient is now on hospice for adult failure to thrive. She finished the Augmentin. Patient was placed on nonrebreather at 15 L/min in the ER which brought her saturation up to the low 90s, she was then titrated down to 10 L/min and her saturation appeared to stay in the low 90s when she would leave her finger probe alone in a we will get an adequate waveform. Patient does have severe dementia. And is on hospice for adult failure to thrive. Multiple family members are at bedside and did want her treated aggressively from the pneumonia standpoint Review of Systems 2 General: Reports: 10 or more systems reviewed and unremarkable except in HPI and below PFSH ED 2 PFSH: Medical History Inadequate oral intake Dementia Physical Exam 2 Const: COMMON NORMALS: no acute distress, alert and well nourished OTHER: Very thin and frail HENMT: COMMON NORMALS: normocephalic, atraumatic, hearing grossly normal bilaterally, Normal external nose present and moist oral mucous membranes H EAD & SCALP: normocephalic and atraumatic NOSE: Normal external nose present Neck/C-Spine: COMMON NORMALS: no JVD Chest: COMMONS NORMALS: normal inspection of the chest and normal palpation of entire chest wall Resp: COMMON NORMALS: normal respiratory effort, No retractions, No use of accessory muscles and clear to auscultation bilaterally (Decreased breath sounds bilaterally occasional rhonchi bilaterally) AUSCULTATION: clear to auscultation bilaterally (Decreased breath sounds bilaterally occasional rhonchi bilaterally) Cardio: COMMON NORMALS: no JVD, regular rhythm, S1 normal heart sound present, S2 normal heart sound present, No gallops present (Cardio), No clicks present (Cardio), No murmurs present (Cardio) and No rub (Cardio); negative for regular rate (Mildly tachycardic) RATE: abnormal rate (Mildly tachycardic) RHYTHM: regular rhythm HEART SOUNDS: S1 normal heart sound present and S2 normal heart sound present GI: COMMON NORMALS: Normal to inspection, nondistended, normoactive bowel sounds present, Soft to palpation, non-tender, No hepatosplenomegaly present and no masses PALPATION: Yes Soft to palpation and Yes No hepatosplenomegaly present Neuro: SENSORIUM/ORIENTATION: Yes alert Course 2 Vital Signs: Vital signs: Vital Signs Temperature 97.9 F 01/11/24 21:46 Pulse Rate 125 H 01/11/24 23:38 Respiratory Rate 20 H 01/11/24 23:38 Pulse Oximetry 95 01/11/24 23:38 Oxygen Delivery Me thod Non-Rebreather 01/11/24 23:38 Oxygen Flow Rate 15 01/11/24 23:38 Fraction of Inspir ed Oxygen 100 01/11/24 23:38 MDM - SOB/Dyspnea Medical Decision Making ABG was obtained patient pH 7.4, pCO2 42, pO2 of 33.2, bicarb 25.9, sodium of 150, potassium of 2.8, this is on 12 L per nonrebreather mask Chest x-ray showed multifocal pneumonia, due to outpatient failure of antibiotics patient will be given Zosyn 3.375 g, 500 cc bolus of normal saline, 40 mg Solu-Medrol, 1 DuoNeb, these results was discussed with the family as well as Dr. Garza who agreed to place the patient inpatient for further evaluation and treatment. Medical Records I reviewed the patient's medical records. Lab Data I reviewed the patient's lab results. 01/11/24 22:25 01/11/24 22:25 Labs/Radiology: Radiology Impressions Chest X-Ray 01/11/24 22:10 IMPRESSION: Patchy opacities at the lung bases, not seen on prior radiograph July 24, 2023, concerning for multifocal infectious/inflammatory etiology. Emphysema. Laboratory Results WBC 4.12 10^3/uL (3.29-11.43) 01/11/24 22:25 RBC 3.67 10^6/uL (3.85-5.65) L 01/11/24 22:25 Hgb 11.20 g/dL (11.27-16.99) L 01/11/24 22: Hct 34.8 % (36-47) L 01/11/24 22: MCV 94.8 fl (85-98) 01/11/24: MCH 30.5 pg (27-33) 01/11/24: MCHC 32.2 g/dL (30-55) 01/11/24: RDW 17.7 % (12.1-15.1) H 01/11/24: Plt Count 171 10^3/cmm (157-399) 01/11/24: MPV 10.2 fL (7.4-10.4) 01/11/24: Neut % (Auto) 90.6 % 01/11/24: Lymph % (Auto) 4.1 % 01/11/24: [place] % (Auto) 3.9 % 01/11/24: Eos % (Auto) 0.2 % 01/11/24 Baso % (Auto) 1.0 % 01/11/24 Neut # (Auto) 3.73 10^3/uL (1.8-7.7) 01/11/24 Lymph # (Auto) 0.2 10^3/uL (0.8-4.8) L 01/11/24: [place] # (Auto) 0.2 10^3/uL (0.2-0.9) 01/11/24: Eos # (Auto) 0.0 10^3/uL (0.0-0.8) 01/11/24: Baso # (Auto) 0.0 10^3/uL (0.0-0.1) 01/11/24 Nucleated RBC % (auto) 0 % 01/11/24 Nucleated RBCs # 0.0 /100WBC 01/11/24: Specimen Type Arterial 01/11/24: Sample Site Radial, right 01/11/24: ABG pH 7.40 (7.35-7.45) 01/11/24: ABG pCO2 42.1 mmHg (35-45) 01/11/24: ABG pO2 33.2 mmHg (80.0-100.0) L* 01/11/24: ABG PO2/FiO2 Ratio 33 01/11/24: ABG HCO3 25.9 mmol/L (22-26) 01/11/24 22: ABG O2 Saturation 59.2 01/11/24 22: ABG Base Excess 0.9 mmol/L (-2.0-2.0) 01/11/24 22: Brennan Test Pos 01/11/24 22: A-a O2 Gradient 81.8 mmHg (5-10) H 01/11/24 22: Hematocrit 35.2 % (37-47) L 01/11/24 22: Hgb O2 Saturation 58.5 % (95-100) L 01/11/24 22: Carboxyhemoglobin 1.1 %THgb (0.4-20.1) 01/11/24 22: Methemoglobin 0.2 % (0.4-1.5) L 01/11/24 22: Total Hemoglobin 11.5 g/dL (12-16) L 01/11/24 22: Sodium 150.0 mmol/L (131-143) H 01/11/24 22: Potassium 2.8 mmol/L (3.5-5.0) L 01/11/24 22: Glucose 116.0 mg/dL (70-115) H 01/11/24 22: Ionized Calcium 1.2 mmol/L (1.1-1.4) 01/11/24 22: O2 Delivery Device Nrb 01/11/24 22: O2 Liters/Min 12.0 % 01/11/24 22: FiO2 100.0 % 01/11/24 22: Childhood Teacher ID Cl 01/11/24 22: Sodium 149 mmol/L (136-145) H 01/11/24 22:25 Potassium 2.8 mmol/L (3.5-5.1) L* 01/11/24 22: Chloride 112 mmol/L (98-107) H 01/11/24 22: Carbon Dioxide 24 mmol/L (22-29) 01/11/24 22: Anion Gap 15.8 (5-19) 01/11/24 22: BUN 17 mg/dL (8-23) 01/11/24 22: Creatinine 0.6 mg/dL (0.5-0.9) 01/11/24:25 GFR Calculation Not Reportable 01/11/24 22:25 Glucose 128 mg/dL (65-115) H 01/11/24 22:25 Calculated Osmolality 311 mOsm/kg (285-295) H 01/11/24 22:25 Lactic Acid 2.2 mmol/L (0.5-2.2) 01/11/24 22:25 Calcium 8.7 mg/dL (8.5-10.5) 01/11/24: Magnesium 1.8 mg/dL (1.7-2.3) 01/11/24 22:25 Total Bilirubin 0.5 mg/dL (0.15-1.2) 01/11/24 22:25 AST 29 U/L (0-32) 01/11/24 22: ALT 28 U/L (0-33) 01/11/24 22:25 Alkaline Phosphatase 87 U/L (35-105) 01/11/24 22:25 Total Protein 6.2 g/dL (6.6-8.7) L 01/11/24 22:25 Albumin 3.0 g/dL (3.5-5.2) L 01/11/24 22:25 Globulin 3.2 g/dL (1.3-4.6) 01/11/24 22:25 Procalcitonin 1.06 ng/mL (0-0.5) H 01/11/24 22:25 All radiology interpretation(s) finalized by discharge Discharge Plan Discharge Admit Provider: Starr Garza Clinical Impression: Multifocal pneumonia, Hypernatremia, Acute hypokalemia, Severe dementia, Adult failure to thrive Condition: Stable Coding Level of Care Code ED Chemistry Laboratory Technician for Chikis Harry
[2024-01-11 22:35] LABS: ABG PCO2 42.1 mmHg (35-45); Alveolar-Arterial Oxygen Gradi 81.8 mmHg (5-10); Arterial Blood Gas Hematocrit 35.2 % (37-47); Base Excess ABG 0.9 mmol/L (-2.0-2.0); Blood Gas Allen Test Pos; Blood Gas Operator Identificat CL; Blood Gas Sample Site Radial, right; Blood Gas Sample Type Arterial; Carboxyhemoglobin 1.1 %THgb (0.4-20.1); HCO3 ABG 25.9 mmol/L (22-26); HGB O2 Sat 58.5 % (95-100); Ionized Calcium Level - ABG 1.2 mmol/L (1.1-1.4); Methemoglobin 0.2 % (0.4-1.5); Oxygen Device NRB; Oxygen Saturation ABG 59.2; PO2 ABG 33.2 mmHg (80.0-100.0); PO2 FiO2 Ratio Arterial Blood 33; Potassium Level - ABG 2.8 mmol/L (3.5-5.0); Total Hemoglobin 11.5 g/dL (12-16)
[2024-01-11 22:47] LABS: Eosinophils % 0.2 %; Hematocrit 34.8 % (36-47); Lymphocytes # 0.2 10^3/uL (0.8-4.8); Lymphocytes % 4.1 %; Mean Corpuscular HGB Conc 32.2 g/dL (30-55); Mean Corpuscular Hemoglobin 30.5 pg (27-33); Mean Corpuscular Volume 94.8 fl (85-98); Mean Platelet Volume 10.2 fL (7.4-10.4); Monocytes # 0.2 10^3/uL (0.2-0.9); Monocytes % 3.9 %; Neutrophils # 3.73 10^3/uL (1.8-7.7); Neutrophils % 90.6 %; Nucleated Red Blood Cells % 0 %; Platelet Count 171 10^3/cmm (157-399); Red Blood Count 3.67 10^6/uL (3.85-5.65); Red Cell Distribution Width 17.7 % (12.1-15.1); White Blood Count 4.12 10^3/uL (3.29-11.43)
[2024-01-11 23:05] LABS: Alanine Aminotransferase 28 U/L (0-33); Alkaline Phosphatase 87 U/L (35-105); Anion Gap 15.8 (5-19); Aspartate Amino Transferase 29 U/L (0-32); Blood Urea Nitrogen 17 mg/dL (8-23); Calcium 8.7 mg/dL (8.5-10.5); Carbon Dioxide 24 mmol/L (22-29); Chloride 112 mmol/L (98-107); Creatinine Clr Calc Pharmacy 30.4959; Globulin 3.2 g/dL (1.3-4.6); Glucose 128 mg/dL (65-115); Magnesium 1.8 mg/dL (1.7-2.3); Osmolality Calculated 311 mOsm/kg (285-295); Sodium 149 mmol/L (136-145); Total Bilirubin 0.5 mg/dL (0.15-1.2); Total Protein 6.2 g/dL (6.6-8.7)
[2024-01-11 23:06] LABS: Lactic Sepsis W/Reflex 2.2 mmol/L (0.5-2.2)
[2024-01-11 23:13] LABS: Potassium 2.8 mmol/L (3.5-5.1)
[2024-01-11] MEDS: methylPREDNISolone sod succ 40 mg/mL INJ IVP (23:18)
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
[2024-01-11] MEDS: sodium chloride 0.9% 500 ML IV (23:19)
[2024-01-11] MEDS: piperacillin-tazobactam 3.375 GM in sodium chloride 0.9% (plus) 50 ML IV (23:19)
[2024-01-11 23:24] LABS: Slide Review Slide Review Perform
[2024-01-11 23:34] LABS: Procalcitonin 1.06 ng/mL (0-0.5)
[2024-01-11] MEDS: ipratropium-albuterol 3 mL Neb INHALATION (23:35)
[2024-01-12] VITALS (12 sets, daily range): BP systolic 93–110; BP diastolic 47–63; PULSE 100–131; RESP 16–18; TEMP 36.4–36.8; O2SAT 88–99
[2024-01-12] MEDS: haloperidol inj 5 mg/mL INJ 1 mL 1 MG IVP ×5 (00:26→17:08)
--- NOTE | 2024-01-12 00:30 | PC.NURSE ---
Verified with Dr. Garza that IM Haldol is to be given every four hours scheduled, not PRN.
[2024-01-12 00:40] LABS: Reflex Lactate Order REFLEX LACTIC ORDERD
--- NOTE | 2024-01-12 00:58 | PC.NURSE ---
ED nurse states that patient already received her dose of Zyprexa at home, per family.
--- NOTE | 2024-01-12 01:06 | PC.NURSE ---
Dr. Garza notified of potassium of 2.8. Notified that patient has ordered for D5 0.45% NS with 20 MEQ KCL, but that patient did not receive any potassium in the ED.
[2024-01-12] MEDS: D5-NS 0.45% + KCL 20 mEq 20 MEQ/1,000 ML BAG 100 MEQ IV (01:14)
[2024-01-12 01:36] LABS: Lactic Acid level (Lactate) 1.6 mmol/L (0.5-2.2)
[2024-01-12] MEDS: OLANZapine 10 mg VIAL 5 MG IM (02:34)
--- NOTE | 2024-01-12 02:56 | PC.NURSE ---
Dr. Garza notified that patient received Haldol 1 mg in ED and 1 mg from me. Notified that patient took home Zyprexa before coming to the hospital. Patient is attempting to get out of bed, pulling at [place], and becoming agitated. at bedside states it takes a lot of medicine to calm her down. Ordered okay to give 5 mg IM Zyprexa now.
[2024-01-12] MEDS: LORazepam 2 mg/mL INJ 1 mL 0.5 MG IVP (03:38)
[2024-01-12 04:39] LABS: Adenovirus Not Detected (NOT DETECT); Chlamydia Pneumoniae Not Detected (NOT DETECT); Coronavirus 229E,HKU1,NL63,OC4 Not Detected (NOT DETECT); Human Metapneumovirus Not Detected (NOT DETECT); Human Rhinovirus/Enterovirus Not Detected (NOT DETECT); Influenza A Not Detected (NOT DETECT); Influenza A H1 Not Detected (NOT DETECT); Influenza A H1-2009 Not Detected (NOT DETECT); Influenza A H3 Not Detected (NOT DETECT); Influenza B Not Detected (NOT DETECT); Mycoplasma Pneumoniae Not Detected (NOT DETECT); Parainfluenza Virus Type 1 Not Detected (NOT DETECT); Parainfluenza Virus Type 2 Not Detected (NOT DETECT); Parainfluenza Virus Type 3 Not Detected (NOT DETECT); Parainfluenza Virus Type 4 Not Detected (NOT DETECT); Respiratory Syncytial Virus A Not Detected (NOT DETECT); Respiratory Syncytial Virus B Not Detected (NOT DETECT); SARS-COV-2 Not Detected (NOT DETECT)
[2024-01-12 05:31] LABS: Blood Urea Nitrogen 15 mg/dL (8-23); Calcium 7.4 mg/dL (8.5-10.5); Carbon Dioxide 19 mmol/L (22-29); Chloride 114 mmol/L (98-107); Creatinine Clr Calc Pharmacy 30.4959; Glucose 169 mg/dL (65-115); Magnesium 1.7 mg/dL (1.7-2.3); Osmolality Calculated 307 mOsm/kg (285-295); Sodium 146 mmol/L (136-145)
[2024-01-12 05:37] LABS: Anion Gap 16.5 (5-19); Potassium 3.5 mmol/L (3.5-5.1)
[2024-01-12] MEDS: piperacillin-tazobactam 3.375 GM in sodium chloride 0.9% (plus) 50 ML IV (08:22)
[2024-01-12 11:37] LABS: Basophils % 0.8 %; Hematocrit 34.5 % (36-47); Lymphocytes # 0.1 10^3/uL (0.8-4.8); Lymphocytes % 2.5 %; Mean Corpuscular HGB Conc 31.9 g/dL (30-55); Mean Corpuscular Hemoglobin 29.8 pg (27-33); Mean Corpuscular Volume 93.5 fl (85-98); Mean Platelet Volume 10.2 fL (7.4-10.4); Monocytes # 0.2 10^3/uL (0.2-0.9); Monocytes % 4.2 %; Neutrophils # 4.83 10^3/uL (1.8-7.7); Neutrophils % 92.1 %; Nucleated Red Blood Cells % 0 %; Platelet Count 176 10^3/cmm (157-399); Red Blood Count 3.69 10^6/uL (3.85-5.65); Red Cell Distribution Width 17.5 % (12.1-15.1); White Blood Count 5.24 10^3/uL (3.29-11.43)
[2024-01-12 12:12] LABS: Slide Review Slide Review Perform
--- NOTE | 2024-01-12 12:30 | P.DS_ITS ---
Discharge Providers Date of Admission: 01/12/24 01:29 Date of Discharge: January 12, 2024 Attending Provider at Admission: Starr Garza MD Attending Provider at Discharge: Scar Shell MD Primary Care Provider: Kim Shell MD Diagnoses at Discharge Discharge Diagnosis (1) Palpitations: Status: Acute (2) Adult failure to thrive: Status: Acute (3) Hypernatremia: Status: Acute (4) Acute hypokalemia: Status: Acute (5) Severe dementia: Status: Acute Qualifiers: Dementia behavioral or psychological symptom: unspecified whether behavioral, psychotic, or mood disturbance or anxiety Dementia type: unspecified type Qualified Code(s): F03.C0 - Unspecified dementia, severe, without behavioral disturbance, psychotic disturbance, mood disturbance, and anxiety (6) Multifocal pneumonia: Status: Acute (7) Dementia: Status: Acute (8) Syncope: Status: Acute Reason for Visit Reason for Visit: SOB Hospital Course Hospital Course Kelley is a 74-year-old white female who presented to the hospital with hypoxia. She has dementia, and was recently put on hospice. Family was wanting to initially proceed with treatment of her pneumonitis, likely aspiration. She was placed on Zosyn, and a high level of oxygen. Overnight the oxygen has been able to be tapered to 1 L. She still is not very responsive. I had a long discussion with family members including , both daughters, and they all came to the conclusion that Kelley would not want to continue to aggressive treatment. She would want to be comfortable, at home if possible. Hospice [facility] is already involved, and they are arranging for a hospital bed at home. She should have comfort meds. We initially talked about antibiotic treatment, but she is unlikely to take any oral medication and be able to swallow it. She did appear comfortable on my assessment on 01/11. Everyone was able to ask questions and the family, and agreed with the plan. Physical Exam Narrative: General exam no distress, cachectic, on a facemask with 1 L, opens eyes briefly before going back to sleep Cardiovascular regular rate and rhythm Lungs clear Abdomen soft Extremities no sinus clubbing edema Urinary Catheter Management: Stringer: Cath Placed During This Visit: yes Reason for Continuing Indwelling Catheter: Hospice/Comfort/Palliative Care Urinary Catheter Date of Insertion: 01/12/24 Urinary Catheter Time of Insertion: 02:46 Discharge Data Studies Completed and Pending Completed Studies During Hospitalization Category Date Time Status XR chest 1V portable [id number] Stat Exams 01/11/24 22:10 Completed Pending at discharge Category Date Time Status Blood Culture Stat Lab 01/11/24 23:49 Results Urinalysis Routine Lab 01/12/24 00:16 Ordered Radiology Impressions Chest X-Ray 01/11/24 22:10 IMPRESSION: Patchy opacities at the lung bases, not seen on prior radiograph July 24, 2023, concerning for multifocal infectious/inflammatory etiology. Emphysema. Laboratory Results WBC 5.24 10^3/uL (3.29-11.43) 01/12/24 11:25 Corrected WBC Cancelled 01/12/24 04:49 RBC 3.69 10^6/uL (3.85-5.65) L 01/12/24 11:25 Hgb 11.00 g/dL (11.27-16.99) L 01/12/24 11:25 Hct 34.5 % (36-47) L 01/12/24 11:25 MCV 93.5 fl (85-98) 01/12/24 11:25 MCH 29.8 pg (27-33) 01/12/24 11:25 MCHC 31.9 g/dL (30-55) 01/12/24 11:25 RDW 17.5 % (12.1-15.1) H 01/12/24 11:25 Plt Count 176 10^3/cmm (157-399) 01/12/24 11:25 MPV 10.2 fL (7.4-10.4) 01/12/24 11:25 Gran % Cancelled 01/12/24 04:49 Neut % (Auto) 92.1 % 01/12/24 11:25 Lymph % (Auto) 2.5 % 01/12/24 11:25 [place] % (Auto) 4.2 % 01/12/24 11:25 Eos % (Auto) 0.0 % 01/12/24 11:25 Baso % (Auto) 0.8 % 01/12/24 11:25 Neut # (Auto) 4.83 10^3/uL (1.8-7.7) 01/12/24 11:25 Lymph # (Auto) 0.1 10^3/uL (0.8-4.8) L 01/12/24 11:25 [place] # (Auto) 0.2 10^3/uL (0.2-0.9) 01/12/24 11:25 Eos # (Auto) 0.0 10^3/uL (0.0-0.8) 01/12/24 11:25 Baso # (Auto) 0.0 10^3/uL (0.0-0.1) 01/12/24 11:25 Absolute Gran (auto) Cancelled 01/12/24 04:49 Nucleated RBC % (auto) 0 % 01/12/24 11:25 Nucleated RBCs # 0.0 /100WBC 01/12/24 11:25 Specimen Type Arterial 01/11/24 22:28 Sample Site Radial, right 01/11/24 22:28 ABG pH 7.40 (7.35-7.45) 01/11/24 22:28 ABG pCO2 42.1 mmHg (35-45) 01/11/24 22:28 ABG pO2 33.2 mmHg (80.0-100.0) L* 01/11/24 22:28 ABG PO2/FiO2 Ratio 33 01/11/24 22:28 ABG HCO3 25.9 mmol/L (22-26) 01/11/24 22: ABG O2 Saturation 59.2 01/11/24 22:28 ABG Base Excess 0.9 mmol/L (-2.0-2.0) 01/11/24 22:28 Brennan Test Pos 01/11/24 22:28 A-a O2 Gradient 81.8 mmHg (5-10) H 01/11/24 22:28 Hematocrit 35.2 % (37-47) L 01/11/24 22:28 Hgb O2 Saturation 58.5 % (95-100) L 01/11/24 22:28 Carboxyhemoglobin 1.1 %THgb (0.4-20.1) 01/11/24 22:28 Methemoglobin 0.2 % (0.4-1.5) L 01/11/24 22:28 Total Hemoglobin 11.5 g/dL (12-16) L 01/11/24 22:28 Sodium 150.0 mmol/L (131-143) H 01/11/24 22:28 Potassium 2.8 mmol/L (3.5-5.0) L 01/11/24 22:28 Glucose 116.0 mg/dL (70-115) H 01/11/24 22:28 Ionized Calcium 1.2 mmol/L (1.1-1.4) 01/11/24 22:28 O2 Delivery Device Nrb 01/11/24 22:28 O2 Liters/Min 12.0 % 01/11/24 22:28 FiO2 100.0 % 01/11/24 22:28 Senior Marketing Data Analyst ID Cl 01/11/24 22:28 Sodium 146 mmol/L (136-145) H 01/12/24 04:49 Potassium 3.5 mmol/L (3.5-5.1) 01/12/24 04:49 Chloride 114 mmol/L (98-107) H 01/12/24 04:49 Carbon Dioxide 19 mmol/L (22-29) L 01/12/24 04:49 Anion Gap 16.5 (5-19) 01/12/24 04:49 BUN 15 mg/dL (8-23) 01/12/24 04:49 Creatinine 0.4 mg/dL (0.5-0.9) L 01/12/24 04:49 GFR Calculation Not Reportable 01/12/24 04:49 Glucose 169 mg/dL (65-115) H 01/12/24 04:49 Calculated Osmolality 307 mOsm/kg (285-295) H 01/12/24 04:49 Lactic Acid 2.2 mmol/L (0.5-2.2) 01/11/24 22:25 Lactic Acid (Sepsis) 1.6 mmol/L (0.5-2.2) 01/12/24 00:00 Calcium 7.4 mg/dL (8.5-10.5) L 01/12/24 04:49 Magnesium 1.7 mg/dL (1.7-2.3) 01/12/24 04:49 Total Bilirubin 0.5 mg/dL (0.15-1.2) 01/11/24 22:25 AST 29 U/L (0-32) 01/11/24 22:25 ALT 28 U/L (0-33) 01/11/24 22:25 Alkaline Phosphatase 87 U/L (35-105) 01/11/24 22:25 Total Protein 6.2 g/dL (6.6-8.7) L 01/11/24 22:25 Albumin 3.0 g/dL (3.5-5.2) L 01/11/24 22:25 Globulin 3.2 g/dL (1.3-4.6) 01/11/24 22:25 Procalcitonin 1.06 ng/mL (0-0.5) H 01/11/24 22:25 Adenovirus (PCR) Not detected (NOT DETECT) 01/12/24 02:50 C. pneumoniae DNA (PCR) Not detected (NOT DETECT) 01/12/24 02:50 Coronavirus 229E (PCR) Not detected (NOT DETECT) 01/12/24 02:50 Human Metapneumovir PCR Not detected (NOT DETECT) 01/12/24 02:50 Influenza A (H1) PCR Not detected (NOT DETECT) 01/12/24 02:50 Influ A (H1/09) PCR Not detected (NOT DETECT) 01/12/24 02:50 Influenza A (H3) PCR Not detected (NOT DETECT) 01/12/24 02:50 Influenza Type A (PCR) Not detected (NOT DETECT) 01/12/24 02:50 Influenza Type B (PCR) Not detected (NOT DETECT) 01/12/24 02:50 M. pneumoniae (PCR) Not detected (NOT DETECT) 01/12/24 02:50 Parainfluenza 1 (PCR) Not detected (NOT DETECT) 01/12/24 02:50 Parainfluenza 2 (PCR) Not detected (NOT DETECT) 01/12/24 02:50 Parainfluenza 3 (PCR) Not detected (NOT DETECT) 01/12/24 02:50 Parainfluenza 4 (PCR) Not detected (NOT DETECT) 01/12/24 02:50 RSV Type A (PCR) Not detected (NOT DETECT) 01/12/24 02:50 RSV Type B (PCR) Not detected (NOT DETECT) 01/12/24 02:50 Entero/Rhino (PCR) Not detected (NOT DETECT) 01/12/24 02:50 SARS-CoV-2 (PCR) Not detected (NOT DETECT) 01/12/24 02:50 Vitals Last Vital Signs Temp 97.6 F 01/12/24 11:06 Pulse 103 H 01/12/24 11:06 Resp 16 01/12/24 11:06 BP 109/63 01/12/24 11:06 Pulse Ox 95 01/12/24 11:06 O2 Del Method Nasal Cannula 01/12/24 11:06 O2 Flow Rate 1 01/12/24 11:06 FiO2 100 01/11/24 23:38 Discharge Plan Discharge Patient Disposition: Hospice - Home Condition: Stable Prescriptions: Continued potassium chloride 10 mEq tablet extended release 10 meq PO BID Rx Instructions: patient often refuses to take at home mirtazapine 15 mg tablet 15 mg PO DAILY Qty: 90 0RF Rx Instructions: patient often refuses to take at home divalproex 250 mg Tablet,Delayed Release (Dr/Ec) 250 mg PO BID Zyprexa 5 mg Tablet 5 mg PO QPM Discontinued atorvastatin 20 mg tablet 20 mg PO QAM Rx Instructions: patient often refuses to take at home Discharge Orders: Discharge Order (Routine); Ordered 01/12/24 Ordered By: Scar Shell Referrals: [facility] [Outside] Kim Shell MD [Primary Care Provider] - (Follow up as needed.) Discharge Diet: As Directed Discharge Activity: Increase activity as tolerated Patient Instructions: Hospice Care (GEN), Opioid Safety Activity Restrictions/Additional Instructions: Resuming hospice care. Hospice packet for Morphine/Haldol. Stand Alone Forms: Work/School Release Discharge Attestations Time Spent in Discharge Care*: greater than 30 min Quality Metrics Clinical Quality Measures [ No reported AMI, CVA or VTE this stay] Coding Level of Care Code 71375 Total time (in minutes) for Discharge: 44 Diagnoses Palpitations R00.2 Adult failure to thrive R62.7 Hypernatremia E87.0 Acute hypokalemia E87.6 Severe dementia F03.C0 Dementia behavioral or psychological symptom: unspecified whether behavioral, psychotic, or mood disturbance or anxiety Dementia type: unspecified type Multifocal pneumonia J18.9 Dementia F03.90 Syncope R55
--- NOTE | 2024-01-12 15:56 | PC.NURSE ---
EM[facility] expected to be here between [id number] to transport pt home.
--- NOTE | 2024-01-12 20:23 | PC.NURSE ---
Patient left via EMS at this time.
== END 2024-01-12 20:22 | disposition hospice, home (50) ==
LOC: ER 23:31 → MEDSURG 01-12 00:16
PROVIDERS: Admitting Provider Internal Medicine; Emergency Provider Emergency Medicine; PCP Family Medicine; Visit Provider Internal Medicine
DX: J18.9 Pneumonia, unspecified organism (principal); R00.2 Palpitations; R62.7 Adult failure to thrive; E87.0 Hyperosmolality and hypernatremia; F03.C0 Unspecified dementia, severe, without behavioral disturbance, psychotic disturbance, mood disturbance, and anxiety; F03.90 Unspecified dementia, unspecified severity, without behavioral disturbance, psychotic disturbance, mood disturbance, and anxiety; R55 Syncope and collapse; E46 Unspecified protein-calorie malnutrition; Z68.1 Body mass index [BMI] 19.9 or less, adult; E86.0 Dehydration; N39.0 Urinary tract infection, site not specified; R09.02 Hypoxemia
CPT/HCPCS: 36415; 36600; 51702; 71045; 80048; 80051; 80053; 82330; 82805; 83605; 83735; 84145; 85025; 87040; 87486; 87581; 87633; 94640; 96365; 96366; 96367; 96372; 96375; 99285; G0378; J1630; J2060; J2543; J2919; J3490; J7040